=== PATIENT | female | born 1975 | race Caucasian/White ===

== ENCOUNTER 2022-08-16 11:37 | Emergency (ER) | payer MEDICAID ==
[~2022-08-16] VITALS: Ht 162.6 cm; Wt 166.5 kg
[2022-08-16 11:39] VITALS: BP_SYST 174
--- NOTE | 2022-08-16 12:15 | NUR ---
ER at bedside examining patient.
[2022-08-16 12:19] LABS: EOSINOPHILS # (AUTO) 0.1 K/uL (0.0-0.4); EOSINOPHILS % (AUTO) 2.2 % (0.0-4.0); HEMATOCRIT 35.7 % (36-48); HEMOGLOBIN 10.3 g/dL (12.0-16.0); LYMPHOCYTES % (AUTO) 28.6 % (20.5-51.5); MEAN CORPUSCULAR HEMOGLOBIN 24 pg (27-31); MEAN CORPUSCULAR HGB CONC 29 % (32-36); MEAN CORPUSCULAR VOLUME 82 fL (79.0-98.0); MONOCYTES # (AUTO) 0.3 K/uL (0.0-1.0); MONOCYTES % (AUTO) 7.7 % (1.7-9.3); PLATELET COUNT (AUTO) 177 K/uL (130-430); RED BLOOD CELL COUNT(AUTO) 4.36 MIL/uL (4.2-6.2); RED CELL DISTRIBUTION WIDTH 24.1 % (9.0-15.0); WHITE BLOOD COUNT (AUTO) 3.5 K/uL (4.8-10.8)
--- NOTE | 2022-08-16 12:19 | NUR ---
Pt brougt in by self from home. Chief complaint lower leg slight tissue swelling. Pt right tibia distal to knee is slightly swollen with scratches from pt itchiness to dry area. Pt left lower extremity with echymosis spread across the tibia. Pt states recent fall from bed related to contusions. Pt complains of groin pain to right side. Pt complains of wound at lower abdomen with pink , clean and dry appearance. No pain, pt is afebrile. Pt has a history of hernia and gall bladder issues without planned surgery. Pt has sleep apnea history of gastric bipass in 2006. Pt has a hisory of right foot fracture and left collarbone fracture. Pt is aaox3 no known allergies.
[2022-08-16 12:26] LABS: BASOPHILS % (AUTO) 0.6 % (0.0-2.0); NEUTROPHILS # (AUTO) 2.1 K/uL (1.8-7.7); NEUTROPHILS % (AUTO) 60.9 % (40.0-70.0)
--- NOTE | 2022-08-16 12:50 | NUR ---
Pt to radiology dept. via wheel chair.
[2022-08-16 12:51] LABS: ANION GAP 4 (5-15); CHLORIDE 100 mmol/L (98-107); CREATININE 0.81 mg/dL (0.55-1.30); GFR AFRICAN AMERICAN 98 mL/min (>90); GLUCOSE 84 mg/dL (70-99); UREA NITROGEN, BLOOD 6 mg/dL (8-21)
--- NOTE | 2022-08-16 12:52 | NUR ---
railroad signal technician arrived, pt away to radiology.
[2022-08-16 13:07] LABS: ALANINE AMINOTRANSFERASE 45 U/L (12-78); ALBUMIN 2.8 g/dL (3.4-4.8); ASPARTATE AMINOTRANSFERASE 53 U/L (10-37); TOTAL BILIRUBIN 0.9 mg/dL (0.0-1.0)
[2022-08-16 13:12] LABS: BILIRUBIN,URINE 1+ (NEGATIVE); BLOOD, URINE NEGATIVE (NEGATIVE); CLARITY/URINE CLEAR (CLEAR); COLOR,URINE YELLOW (YELLOW); GLUCOSE,URINE NEGATIVE (NEGATIVE); KETONES,URINE TRACE (NEGATIVE); LEUKOCYTE ESTERASE ,URINE NEGATIVE (NEGATIVE); NITRITE, URINE NEGATIVE (NEGATIVE); PH,URINE 6.5 (5.0-8.0); PROTEIN URINE TRACE (NEGATIVE)
--- NOTE | 2022-08-16 13:13 | NUR ---
Ultra sound tech bedside with pt.
[2022-08-16 13:31] LABS: BACTERIA,URINE RARE /HPF (None Seen); HYALINE CASTS, URINE 0-10 /LPF (None Seen); RBC,URINE 0-3 /HPF (0-3); WBC,URINE NONE SEEN /HPF (0-3)
[2022-08-16] MEDS ORDERED: cefTRIAXone 1 GM IVPB PREMIX 50 ML IV ONE (13:45)
--- NOTE | 2022-08-16 14:25 | NUR ---
Pt requested food stating very hungry. Pt told to await for MD approval. Pt ordered Jake in the box.
--- NOTE | 2022-08-16 14:28 | NUR ---
SONI Bowles gave IV ABX per IV drip
[2022-08-16] MEDS ORDERED: CEPH-548 PO (14:29)
[2022-08-16] MEDS ORDERED: NAPR-1172 PO (14:29)
[2022-08-16] MEDS ORDERED: ACET-2634 PO (14:29)
--- NOTE | 2022-08-16 14:58 | NUR ---
Patient given written and verbal discharge instructions and verbalizes understanding. ER MD discussed with patient the results and treatment provided. Patient in stable condition. ID arm band removed. IV catheter removed intact and dressing applied, no active bleeding. Rx of CEPHALEXIN NAPROXYN AND TYLENOL given. Patient educated on pain management and to follow up with PMD. Opportunity for questions provided and answered. Medication side effect fact sheet provided.
[2022-08-16 14:59] VITALS: BP_SYST 174
== END 2022-08-16 14:58 | disposition home or self-care (01) ==
LOC: SED 11:37
DX: S76.011A Strain of muscle, fascia and tendon of right hip, initial encounter (principal); L03.116 Cellulitis of left lower limb; O90.0 Disruption of cesarean delivery wound; Z79.899 Other long term (current) drug therapy; W06.XXXA Fall from bed, initial encounter; Y93.89 Activity, other specified; Y92.89 Other specified places as the place of occurrence of the external cause; Y99.8 Other external cause status
CPT/HCPCS: 99285; 93970; 96365; 80053; 81000; 83880; 85025; 87040; 87086; 84484; 36415; 73502; 73590; 83605; J0696